=== PATIENT | male | born 1955 | race Caucasian/White ===

== ENCOUNTER 2018-04-30 13:21 | Inpatient (IN) | payer OTHER ==
[2018-04-30] MEDS ORDERED: Acetaminophen 325 MG Tab PO PRN (13:28)
[2018-04-30] MEDS: Sodium Chloride 0.9% 1,000 ML IV SCH (14:10)
[2018-04-30] MEDS: Levofloxacin/Dextrose 5%-Water 750 MG in Premix Bag 1 BAG IV SCH (15:00)
[2018-04-30] MEDS: Albuterol/Ipratropium 3.0-0.5 MG/3 ML Neb Soln NEB SCH ×2 (15:05→20:41)
--- NOTE | 2018-04-30 16:03 | PCM.HP ---
H&P History of Present Illness - General Date of Service: 04/30/18 Admit Problem/Dx: Admission Diagnosis/Problem Admission Diagnosis/Problem Pneumonia Source of Information: Patient History Limitations: Reports: No Limitations - History of Present Illness Initial Comments - Free Text/Narative: Ginny 8-year-old smoker who presents with cough and fever. Of 2-3 days. Was seen at [facility] and diagnosed with the left lower lobe pneumonia. He is admitted for IV antibiotics. 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 He denies any chest pain headaches nausea or vomiting denies Pain Score (Numeric/FACES): 0 asleep Pain Score (Numeric/FACES): 0 - Related Data Allergies/Adverse Reactions: Allergies Allergy/AdvReac Type Severity Reaction Status Date / Time No Known Allergies Allergy Verified 04/30/18 15:42 Home Medications: Home Meds Albuterol/Ipratropium [Combivent] 1 puff PO QID 05/11/16 [History] Warfarin [Coumadin] 5 mg PO SUTUWETHFRSA 05/11/16 [History] Warfarin [Coumadin] 7.5 mg PO MO 05/11/16 [History] Fluticasone/Salmeterol [Advair 250-50 Diskus] 1 each IH BID 05/15/16 [History] Past Medical History Cardiovascular History: Reports: Angina, Blood Clots/VTE/DVT Respiratory History: Reports: COPD Musculoskeletal History: Reports: Other (See Below) Other Musculoskeletal History: fx left ankle and laceration to right leg in past 20 years - Past Surgical History GI Surgical History: Reports: Hernia, Inguinal Social & Family History - Family History Family Medical History: Noncontributory Cardiac: Reports: [place] Respiratory: Reports: PE, Other (See Below) Other Respiratory Family Hisory: emph Oncologic: Reports: Other (See Below) Other Oncologic Family History: older sister passed from [place] unsure of type - Tobacco Use Smoking Status *Q: Current Every Day Smoker Years of Tobacco use: 42 Packs/Tins Daily: 1 Second Hand Smoke Exposure: Yes - Caffeine Use Caffeine Use: Reports: Coffee - Alcohol Use Days Per Week of Alcohol Use: 3 Number of Drinks Per Day: 3 Total Drinks Per Week: 9 Date of Last Drink: 04/29/18 Time of Last Drink: 20:00 - Recreational Drug Use Recreational Drug Use: No H&P Review of Systems - Review of Systems: Review Of Systems: ROS reveals no pertinent complaints other than HPI. Exam - Exam Exam: See Below - Vital Signs Vital Signs: Last Vital Signs Temp 98.3 F 04/30/18 14:00 Pulse 96 04/30/18 15:27 Resp 18 04/30/18 14:00 BP 118/72 04/30/18 14:00 Pulse Ox 87 L 04/30/18 15:27 Weight: 80.83 kg - Exam Quality Assessment: Supplemental Oxygen General: Alert, Oriented HEENT: PERRLA, Hearing Intact, Mucosa Moist & [place], Nares Patent, Normal Nasal Septum, Posterior Pharynx Clear, Conjunctiva Clear, EOMI, EACs Clear, TMs Clear Neck: Supple, Trachea Midline, 2 Lungs: Crackles, Rales Cardiovascular: Regular Rate GI/Abdominal Exam: Normal Bowel Sounds, Soft, Non-Tender, No Organomegaly, No Distention, No Abnormal Bruit, No Mass, Pelvis Stable (Male) Exam: Deferred Rectal (Males) Exam: Deferred Back Exam: Normal Inspection, Full Range of Motion, NT Extremities: Normal Inspection, Normal Range of Motion, Non-Tender, No Pedal Edema, Normal Capillary Refill Skin: Warm, Dry, Intact Neurological: Cranial Nerves Intact, Reflexes Equal Bilateral Neuro Extensive - Mental Status: Alert, Oriented x3, Normal Mood/Affect, Normal Cognition Neuro Extensive - Motor, Sensory, Reflexes: CN II-XII Intact, Normal Gait, Normal Reflexes Psychiatric: Alert, Normal Affect, Normal Mood - Patient Data Lab Results Last 24 hrs: Laboratory Results - last 24 hr 04/30/18 04/30/18 Range/Units 13:42 13:42 Sodium 132 L (135-145) mmol/L Potassium 4.0 (3.5-5.3) mmol/L Chloride 95 L (100-110) mmol/L Carbon Dioxide 28 (21-32) mmol/L BUN 24 H (7-18) mg/dL Creatinine 1.6 H (0.70-1.30) mg/dL Est Cr Clr Drug Dosing TNP Estimated GFR (MDRD) 44 L (>60) BUN/Creatinine Ratio 15.0 (9-20) Glucose 117 H (80-116) mg/dL Calcium 8.5 L (8.6-10.2) mg/dL Total Bilirubin 1.2 (0.1-1.3) mg/dL AST 17 (5-25) IU/L ALT 15 (12-36) U/L Alkaline Phosphatase 76 (56-112) IU/L Troponin I < 0.017 L (<0.017-0.056) ng/mL Total Protein 7.2 (6.0-8.0) g/dL Albumin 2.8 L (3.2-4.6) g/dL Globulin 4.4 g/dL Albumin/Globulin Ratio 0.6 Result Diagrams: 05/01/18 06:45 05/01/18 06:45 Richard Results Last 24 hrs: Microbiology 04/30/18 15:00 Influenza Type A Antigen Screen - Final Nasal, Unspecified NEGATIVE INFLUENZA A VIRUS AG Influenza Type B Antigen Screen - Final NEGATIVE INFLUENZA B VIRUS AG EKG INTERPRETATION EKG Date: 04/30/18 Rhythm: NSR - Problem List (1) Pneumonia SNOMED Code(s): 279785346 ICD Code: J18.9 - PNEUMONIA, UNSPECIFIED ORGANISM Status: Acute Current Visit: Yes Qualifiers: Aspiration pneumonia type: unspecified (2) H/O deep venous thrombosis SNOMED Code(s): 643694200 ICD Code: Z86.718 - PERSONAL HISTORY OF OTHER VENOUS THROMBOSIS AND EMBOLISM Status: Acute Current Visit: Yes (3) COPD (chronic obstructive pulmonary disease) SNOMED Code(s): 29091133 ICD Code: J44.9 - CHRONIC OBSTRUCTIVE PULMONARY DISEASE, UNSPECIFIED Status : Acute Current Visit: No Qualifiers: COPD type: COPD with acute exacerbation Qualified Code(s): J44.1 - Chronic obstructive pulmonary disease with (acute) exacerbation (4) Tobacco abuse SNOMED Code(s): 864845880 ICD Code: Z72.0 - TOBACCO USE Status: Acute Current Visit: No Problem List Initiated/Reviewed/Updated: Yes Orders Last 24hrs: Active Orders 24 hr Category Date Time Status Patient Status [ADT] Routine ADT 04/30/18 13:28 Active Height and Weight [RC] DAILY Care 04/30/18 13:28 Active IS (RT) [RT Incentive Spirometry] [RC] ASDIRECTED Care 04/30/18 15:15 Active Intake and Output [RC] QSHIFT Care 04/30/18 13:29 Active Oxygen Therapy [RC] PRN Care 04/30/18 13:28 Active RT Aerosol Therapy [RC] ASDIRECTED Care 04/30/18 13:31 Active VTE/DVT Education [RC] Per Unit Routine Care 04/30/18 13:28 Active Vital Signs [RC] Q4H Care 04/30/18 13:28 Active Regular Diet [DIET] Diet 04/30/18 Breakfast Active CBC W/O DIFF,HEMOGRAM [HEME] AM Lab 05/01/18 05:11 Ordered CULTURE BLOOD [BC] Urgent Lab 04/30/18 13:42 Received CULTURE BLOOD [BC] Urgent Lab 04/30/18 13:47 Received CULTURE SPUTUM + SMEAR [RM] Stat Lab 04/30/18 13:28 Ordered Acetaminophen [Tylenol] Med 04/30/18 13:28 Active 650 mg PO Q4H PRN Albuterol/Ipratropium [DuoNeb 3.0-0.5 MG/3 ML] Med 04/30/18 16:00 Active 3 ml NEB QIDRT Levofloxacin/Dextrose 5%-Water [Levaquin in D5W 750 MG/ Med 04/30/18 13:30 Active 150 ML] 750 mg Premix Bag 1 bag IV Q24H Sodium Chloride 0.9% [Normal Saline] 1,000 ml Med 04/30/18 13:30 Active IV ASDIRECTED Sodium Chloride 0.9% [Saline Flush] Med 04/30/18 13:28 Active 10 ml FLUSH ASDIRECTED PRN Blood Culture x2 Reflex Set [OM.PC] Urgent Oth 04/30/18 13:27 Ordered Peripheral IV Insertion Adult [OM.PC] Routine Oth 04/30/18 13:28 Ordered Resuscitation Status Routine Resus Stat 04/30/18 13:28 Ordered EKG 12 Lead [EK] Routine Ther 04/30/18 13:28 Ordered Medication Orders Acetaminophen (Tylenol) 650 mg PO Q4H PRN PRN Reason: Pain (Mild 1-3)/fever Albuterol/Ipratropium (Duoneb 3.0-0.5 Mg/3 Ml) 3 ml NEB QIDRT [facility] Last Admin: 04/30/18 15:05 Dose: 3 ml Levofloxacin/Dextrose 750 mg/ (Premix) 150 mls @ 100 mls/hr IV Q24H [facility] Last Admin: 04/30/18 15:00 Dose: 100 mls/hr Sodium Chloride (Normal Saline) 1,000 mls @ 125 mls/hr IV ASDIRECTED [facility]ID Last Admin: 04/30/18 14:10 Dose: 125 mls/hr Sodium Chloride (Saline Flush) 10 ml FLUSH ASDIRECTED PRN PRN Reason: Keep Vein Open Assessment/Plan Comment:: IVF,IV antibiotics,SVN's ,Solumedrol
[2018-04-30] MEDS: methylPREDNISolone Sodium Succinate 125 MG/2 ML SDV IVPUSH SCH (17:19)
[2018-04-30] MEDS: Formoterol/Mometasone 200-5 MCG 8.8 GM Inhaler IH SCH (20:44)
[2018-05-01] MEDS: methylPREDNISolone Sodium Succinate 125 MG/2 ML SDV IVPUSH SCH ×3 (01:19→17:10)
[2018-05-01] MEDS: Sodium Chloride 0.9% 1,000 ML IV SCH (02:11)
[2018-05-01] MEDS: Albuterol/Ipratropium 3.0-0.5 MG/3 ML Neb Soln NEB SCH ×4 (07:12→20:27)
[2018-05-01] MEDS: Formoterol/Mometasone 200-5 MCG 8.8 GM Inhaler IH SCH ×2 (08:40→20:40)
[2018-05-01] MEDS ORDERED: Iopamidol 755 Mg/ML 100 ML Bottle IV ONE (09:02)
--- NOTE | 2018-05-01 09:28 | PCM.PN ---
- General Info Date of Service: 05/01/18 Subjective Update: Erwin slept well, has no complaints. However the nursing staff noted that his oxygenation needs increased.No fever reported. - Review of Systems HEENT: Reports: No Symptoms Pulmonary: Reports: Cough Cardiovascular: Reports: No Symptoms Gastrointestinal: Reports: No Symptoms - Patient Data Vitals - Most Recent: Last Vital Signs Temp 97.6 F 05/01/18 08:00 Pulse 70 05/01/18 08:00 Resp 14 05/01/18 08:00 BP 105/68 05/01/18 08:00 Pulse Ox 88 L 05/01/18 08:00 Weight - Most Recent: 80.83 kg I&O - Last 24 Hours: Intake & Output 04/30/18 05/01/18 05/01/18 22:59 06:59 14:59 Intake Total 200 Balance 200 Lab Results Last 24 Hours: Laboratory Results - last 24 hr 04/30/18 04/30/18 05/01/18 Range/Units 13:42 13:42 06:45 WBC 8.0 (4.5-12.0) X10-3/uL RBC 4.41 (4.30-5.75) x10(6)uL Hgb 13.7 (11.5-15.5) g/dL Hct 41.3 (30.0-51.3) % MCV 93.7 (80-96) fL MCH 31.2 (27.7-33.6) pg MCHC 33.3 (32.2-35.4) g/dL RDW 13.4 (11.5-15.5) % Plt Count 118 L (125-369) X10(3)uL PT (8.7-11.1) INR (0.89-1.13) Sodium 132 L (135-145) mmol/L Potassium 4.0 (3.5-5.3) mmol/L Chloride 95 L (100-110) mmol/L Carbon Dioxide 28 (21-32) mmol/L BUN 24 H (7-18) mg/dL Creatinine 1.6 H (0.70-1.30) mg/dL Est Cr Clr Drug Dosing TNP Estimated GFR (MDRD) 44 L (>60) BUN/Creatinine Ratio 15.0 (9-20) Glucose 117 H (80-116) mg/dL Calcium 8.5 L (8.6-10.2) mg/dL Total Bilirubin 1.2 (0.1-1.3) mg/dL AST 17 (5-25) IU/L ALT 15 (12-36) U/L Alkaline Phosphatase 76 (56-112) IU/L Troponin I < 0.017 L (<0.017-0.056) ng/mL Total Protein 7.2 (6.0-8.0) g/dL Albumin 2.8 L (3.2-4.6) g/dL Globulin 4.4 g/dL Albumin/Globulin Ratio 0.6 05/01/18 05/01/18 Range/Units 06:45 06:45 WBC (4.5-12.0) X10-3/uL RBC (4.30-5.75) x10(6)uL Hgb (11.5-15.5) g/dL Hct (30.0-51.3) % MCV (80-96) fL MCH (27.7-33.6) pg MCHC (32.2-35.4) g/dL RDW (11.5-15.5) % Plt Count (125-369) X10(3)uL PT 34.5 H (8.7-11.1) INR 3.61 H (0.89-1.13) Sodium 137 (135-145) mmol/L Potassium 4.5 (3.5-5.3) mmol/L Chloride 100 D (100-110) mmol/L Carbon Dioxide 31 (21-32) mmol/L BUN 19 H (7-18) mg/dL Creatinine 1.1 (0.70-1.30) mg/dL Est Cr Clr Drug Dosing 76.06 Estimated GFR (MDRD) > 60 (>60) BUN/Creatinine Ratio 17.3 (9-20) Glucose 152 H (80-116) mg/dL Calcium 8.8 (8.6-10.2) mg/dL Total Bilirubin (0.1-1.3) mg/dL AST (5-25) IU/L ALT (12-36) U/L Alkaline Phosphatase (56-112) IU/L Troponin I (<0.017-0.056) ng/mL Total Protein (6.0-8.0) g/dL Albumin (3.2-4.6) g/dL Globulin g/dL Albumin/Globulin Ratio Richard Results Last 24 Hours: Microbiology 04/30/18 15:00 Influenza Type A Antigen Screen - Final Nasal, Unspecified NEGATIVE INFLUENZA A VIRUS AG Influenza Type B Antigen Screen - Final NEGATIVE INFLUENZA B VIRUS AG Med Orders - Current: Current Medications Acetaminophen (Tylenol) 650 mg PO Q4H PRN PRN Reason: Pain (Mild 1-3)/fever Albuterol/Ipratropium (Duoneb 3.0-0.5 Mg/3 Ml) 3 ml NEB QIDRT [facility] Last Admin: 05/01/18 07:12 Dose: 3 ml Levofloxacin/Dextrose 750 mg/ (Premix) 150 mls @ 100 mls/hr IV Q24H [facility] Last Admin: 04/30/18 15:00 Dose: 100 mls/hr Methylprednisolone Sodium Succinate (Solu-Medrol) 125 mg IVPUSH Q8H [facility] Last Admin: 05/01/18 08:15 Dose: 125 mg Mometasone Furoate/Formoterol Fumar (Dulera 200-5 Mcg) 2 puff IH BID [facility] Last Admin: 05/01/18 08:40 Dose: 2 puff Sodium Chloride (Saline Flush) 10 ml FLUSH ASDIRECTED PRN PRN Reason: Keep Vein Open Discontinued Medications Sodium Chloride (Normal Saline) 1,000 mls @ 125 mls/hr IV ASDIRECTED [facility] Last Admin: 05/01/18 02:11 Dose: 125 mls/hr Iopamidol (Isovue-370 (76%)) 100 ml IV . DIRECTED ONE Stop: 05/01/18 09:03 - Exam Quality Assessment: Supplemental Oxygen General: Alert, Other Lungs: Crackles, Rales Cardiovascular: Regular Rate - Problem List & Annotations (1) Pneumonia SNOMED Code(s): 675206375 Code(s): J18.9 - PNEUMONIA, UNSPECIFIED ORGANISM Status: Acute Current Visit: Yes Qualifiers: Aspiration pneumonia type: unspecified (2) H/O deep venous thrombosis SNOMED Code(s): 853113763 Code(s): Z86.718 - PERSONAL HISTORY OF OTHER VENOUS THROMBOSIS AND EMBOLISM Status: Acute Current Visit: Yes (3) COPD (chronic obstructive pulmonary disease) SNOMED Code(s): 83773427 Code(s): J44.9 - CHRONIC OBSTRUCTIVE PULMONARY DISEASE, UNSPECIFIED Status : Acute Current Visit: No Qualifiers: COPD type: COPD with acute exacerbation Qualified Code(s): J44.1 - Chronic obstructive pulmonary disease with (acute) exacerbation (4) Tobacco abuse SNOMED Code(s): 944600358 Code(s): Z72.0 - TOBACCO USE Status: Acute Current Visit: No - Problem List Review Problem List Initiated/Reviewed/Updated: Yes - My Orders Last 24 Hours: My Active Orders 04/30/18 13:27 Blood Culture x2 Reflex Set [OM.PC] Urgent 04/30/18 13:28 Patient Status [ADT] Routine Height and Weight [RC] 06 Oxygen Therapy [RC] PRN VTE/DVT Education [RC] Per Unit Routine Vital Signs [RC] 20,00,04,08 CULTURE SPUTUM + SMEAR [RM] Stat Acetaminophen [Tylenol] 650 mg PO Q4H PRN Sodium Chloride 0.9% [Saline Flush] 10 ml FLUSH ASDIRECTED PRN Peripheral IV Insertion Adult [OM.PC] Routine Resuscitation Status Routine EKG 12 Lead [EK] Routine 04/30/18 13:29 Intake and Output [RC] QSHIFT 04/30/18 13:30 Levofloxacin/Dextrose 5%-Water [Levaquin in D5W 750 MG/150 ML] 750 mg Premix Bag 1 bag IV Q24H 04/30/18 13:31 RT Aerosol Therapy [RC] ASDIRECTED 04/30/18 13:42 CULTURE BLOOD [BC] Urgent 04/30/18 13:47 CULTURE BLOOD [BC] Urgent 04/30/18 15:15 IS (RT) [RT Incentive Spirometry] [RC] ASDIRECTED 04/30/18 16:00 Albuterol/Ipratropium [DuoNeb 3.0-0.5 MG/3 ML] 3 ml NEB QIDRT 04/30/18 16:30 methylPREDNISolone Sod Succ [Solu-MEDROL] 125 mg IVPUSH Q8H 04/30/18 21:00 Mometasone/Formoterol [Dulera 200-5 MCG] 2 puff IH BID 05/01/18 08:44 Chest w Cont [CT] Routine 05/01/18 08:45 RT Incentive Spirometry [RC] Q4HWA 05/02/18 05:11 BASIC METABOLIC PANEL,BMP [CHEM] AM CBC WITH AUTO DIFF [HEME] AM 05/02/18 06:00 INR,PT,PROTHROMBIN TIME [COAG] DAILY 05/03/18 06:00 INR,PT,PROTHROMBIN TIME [COAG] DAILY - Plan Plan:: heplock IVF,but IV antibiotics,SVN's ,Solumedrol.Obtain CT chest w/contrast
[2018-05-01] MEDS ORDERED: Warfarin Sliding Scale PO SCH (09:45)
[2018-05-01] MEDS: Iopamidol 755 Mg/ML 75 ML Bottle IV ONE ×2 (12:05→12:16)
[2018-05-01] MEDS: Levofloxacin/Dextrose 5%-Water 750 MG in Premix Bag 1 BAG IV SCH (14:01)
[2018-05-01] MEDS: Sodium Chloride 0.9% 10 ML Syringe FLUSH PRN ×3 (14:02→17:10)
--- NOTE | 2018-05-01 14:05 | CT ---
INDICATION: Hypoxia. Smoker for 42 years one pack a day. CT CHEST WITH CONTRAST: Spiral 2.5 mm images were obtained through the chest with (75 mm Isovue 370 at 3 mm per second) with sagittal and coronal reconstructions 05/01/18--no comparisons were available except for a chest x- ray from 05/11/16. Total exam DPL =369.31 mGy-cm. There is infiltration which is patchy and scattered in the right upper lobe which extends throughout the right upper lobe with numerous focal areas of moderately consolidating infiltration including one area which is somewhat suspicious for other than benign disease just above the middle lobe laterally. There also is patchy infiltrate in the right lower lobe with areas of dense consolidation that is more severe than the more cranial infiltrates. More dense patchy consolidating infiltrate is seen in the middle and very dense consolidating pneumonia is also seen in the left lower lobe and to a slightly lesser extent in the lingula. Relative minimal patchy infiltrate is seen scattered about the left upper lobe. The heart did not appear enlarged. No pericardial effusion was seen. Minimal aortic and brachial cephalic vessel calcification is noted. Mediastinal lymphadenopathy is noted which may be reactive to infection but should be correlated clinically. The largest node precarinal in location measured approximately 18 mm. No mediastinal mass was seen. The upper abdomen included on the examination showed no gross abnormalities. IMPRESSION: 1. Scattered areas of infiltration in all lobes of the lung, most severe in the lower lobes and middle lobe. These findings are compatible with pneumonia possibly hematogenous in origin. The possibility of aspiration pneumonia is felt to be less likely. The findings should be correlated clinically, however. Mediastinal lymphadenopathy is likely secondary. Report was called to Dr. Eisenberg at 1539 hours. [facility]
[2018-05-02] MEDS: methylPREDNISolone Sodium Succinate 125 MG/2 ML SDV IVPUSH SCH ×2 (00:07→09:10)
[2018-05-02] MEDS: Sodium Chloride 0.9% 10 ML Syringe FLUSH PRN ×3 (00:10→17:07)
[2018-05-02] MEDS: Albuterol/Ipratropium 3.0-0.5 MG/3 ML Neb Soln NEB SCH ×4 (07:33→19:59)
--- NOTE | 2018-05-02 10:32 | PCM.PN ---
- General Info Date of Service: 05/02/18 Admission Dx/Problem (Free Text): Patient states he has very little cough. His breathing is better and is less short of breath. He denies chest pain, fevers, chills. He does have some sweats. He is a smoker and says he is tolerating not using the patch and does not want to use it at this time. - Patient Data Vitals - Most Recent: Last Vital Signs Temp 97.7 F 05/02/18 00:05 Pulse 76 05/02/18 07:34 Resp 16 05/02/18 00:05 BP 129/77 05/02/18 00:05 Pulse Ox 92 L 05/02/18 00:05 Weight - Most Recent: 180 lb 11.2 oz I&O - Last 24 Hours: Intake & Output 05/01/18 05/02/18 05/02/18 22:59 06:59 14:59 Intake Total 388 600 Balance 388 600 Lab Results Last 24 Hours: Laboratory Results - last 24 hr 05/02/18 05/02/18 05/02/18 Range/Units 06:35 06:35 06:35 WBC 9.6 (4.5-12.0) X10-3/uL RBC 4.06 L (4.30-5.75) x10(6)uL Hgb 13.0 (11.5-15.5) g/dL Hct 38.0 (30.0-51.3) % MCV 93.7 (80-96) fL MCH 32.1 (27.7-33.6) pg MCHC 34.3 (32.2-35.4) g/dL RDW 13.2 (11.5-15.5) % Plt Count 138 (125-369) X10(3)uL MPV 9.9 (7.4-10.4) fL Add Manual Diff Yes Neutrophils % (Manual) 92 H (46-82) % Lymphocytes % (Manual) 5 L (13-37) % Monocytes % (Manual) 3 L (4-12) % PT 20.5 H (8.7-11.1) INR 2.13 H (0.89-1.13) Sodium 135 (135-145) mmol/L Potassium 3.9 (3.5-5.3) mmol/L Chloride 100 (100-110) mmol/L Carbon Dioxide 28 (21-32) mmol/L BUN 17 (7-18) mg/dL Creatinine 0.9 (0.70-1.30) mg/dL Est Cr Clr Drug Dosing 92.96 mL/min Estimated GFR (MDRD) > 60 (>60) BUN/Creatinine Ratio 18.9 (9-20) Glucose 157 H (80-116) mg/dL Calcium 8.7 (8.6-10.2) mg/dL Richard Results Last 24 Hours: Microbiology 05/01/18 13:02 Gram Stain - Final Sputum - Expectorated 04/30/18 13:42 Aerobic Blood Culture - Preliminary Blood - Venous NO GROWTH AFTER 1 DAY Anaerobic Blood Culture - Preliminary NO GROWTH AFTER 1 DAY 04/30/18 13:47 Aerobic Blood Culture - Preliminary Blood - Venous - Lab Draw NO GROWTH AFTER 1 DAY Anaerobic Blood Culture - Preliminary NO GROWTH AFTER 1 DAY Med Orders - Current: Current Medications Acetaminophen (Tylenol) 650 mg PO Q4H PRN PRN Reason: Pain (Mild 1-3)/fever Albuterol/Ipratropium (Duoneb 3.0-0.5 Mg/3 Ml) 3 ml NEB QIDRT [facility] Last Admin: 05/02/18 07:33 Dose: 3 ml Levofloxacin/Dextrose 750 mg/ (Premix) 150 mls @ 100 mls/hr IV Q24H [facility] Last Admin: 05/01/18 14:01 Dose: 100 mls/hr Mometasone Furoate/Formoterol Fumar (Dulera 200-5 Mcg) 2 puff IH BID [facility] Last Admin: 05/01/18 20:40 Dose: 2 puff Sodium Chloride (Saline Flush) 10 ml FLUSH ASDIRECTED PRN PRN Reason: Keep Vein Open Last Admin: 05/02/18 09:13 Dose: 10 ml Warfarin Sodium (Coumadin Sliding Scale) 1 each PO ASDIRECTED [facility] Warfarin Sodium (Coumadin) 2.5 mg PO 1600 [facility] Stop: 05/02/18 16:01 Discontinued Medications Sodium Chloride (Normal Saline) 1,000 mls @ 125 mls/hr IV ASDIRECTED [facility] Last Admin: 05/01/18 02:11 Dose: 125 mls/hr Iopamidol (Isovue-370 (76%)) 100 ml IV . DIRECTED ONE Stop: 05/01/18 09:03 Iopamidol (Isovue-370 (76%)) 75 ml IV ASDIRECTED ONE Stop: 05/01/18 11:58 Last Admin: 05/01/18 12:16 Dose: 75 ml Methylprednisolone Sodium Succinate (Solu-Medrol) 125 mg IVPUSH Q8H [facility] Last Admin: 05/02/18 09:10 Dose: 125 mg - Exam General: Alert, Oriented, Cooperative Neck: Supple Lungs: Decreased Breath Sounds. No: Crackles, Rales, Rhonchi Cardiovascular: Regular Rate, Regular Rhythm, No Murmurs Extremities: No Pedal Edema - Problem List & Annotations (1) Palliative care status SNOMED Code(s): 602555452 Code(s): Z51.5 - ENCOUNTER FOR PALLIATIVE CARE Status: Acute Current Visit: Yes (2) H/O deep venous thrombosis SNOMED Code(s): 540213626 Code(s): Z86.718 - PERSONAL HISTORY OF OTHER VENOUS THROMBOSIS AND EMBOLISM Status: Acute Current Visit: Yes (3) Pneumonia SNOMED Code(s): 888581376 Code(s): J18.9 - PNEUMONIA, UNSPECIFIED ORGANISM Status: Acute Current Visit: Yes Qualifiers: Aspiration pneumonia type: unspecified (4) COPD (chronic obstructive pulmonary disease) SNOMED Code(s): 39806397 Code(s): J44.9 - CHRONIC OBSTRUCTIVE PULMONARY DISEASE, UNSPECIFIED Status : Acute Current Visit: No Qualifiers: COPD type: COPD with acute exacerbation Qualified Code(s): J44.1 - Chronic obstructive pulmonary disease with (acute) exacerbation (5) Tobacco abuse SNOMED Code(s): 872805975 Code(s): Z72.0 - TOBACCO USE Status: Acute Current Visit: No - Problem List Review Problem List Initiated/Reviewed/Updated: Yes - My Orders Last 24 Hours: My Active Orders 05/02/18 10:30 Triamcinolone Acetonide [Nasacort AQ [place]] 1 gm LETICIA DAILY 05/03/18 09:00 predniSONE 60 mg PO DAILY - Plan Plan:: 1. DC Solu-Medrol and start prednisone 60 mg by mouth a day. 2. I went over his CT scan with the patient today. 3. Continue Coumadin and have pharmacy to manage. 4. Nasacort AQ 2 sprays each nostril once a day. 5. Ambulate frequently and up in the chair.
[2018-05-02] MEDS: Formoterol/Mometasone 200-5 MCG 8.8 GM Inhaler IH SCH ×2 (11:11→19:59)
[2018-05-02] MEDS: Fluticasone Propionate Nasal Spray 16 GM Bottle NAS SCH (13:29)
[2018-05-02] MEDS: Levofloxacin/Dextrose 5%-Water 750 MG in Premix Bag 1 BAG IV SCH (13:29)
[2018-05-02] MEDS ORDERED: Warfarin 2.5 MG Tab PO SCH (16:00)
[2018-05-03] MEDS: Albuterol/Ipratropium 3.0-0.5 MG/3 ML Neb Soln NEB SCH ×4 (07:14→20:23)
--- NOTE | 2018-05-03 08:30 | PCM.PN ---
- General Info Date of Service: 05/03/18 Admission Dx/Problem (Free Text): Patient states that his diaphoresis is gone. He has occasional cough. Not too much shortness of breath with the oxygen. Overall he is much improved. He denies fevers, chills, chest pain or back pain. - Patient Data Vitals - Most Recent: Last Vital Signs Temp 97.6 F 05/03/18 06:15 Pulse 74 05/03/18 07:17 Resp 20 05/03/18 06:15 BP 116/74 05/03/18 06:15 Pulse Ox 94 L 05/03/18 07:14 Weight - Most Recent: 186 lb I&O - Last 24 Hours: Intake & Output 05/02/18 05/03/18 05/03/18 22:59 06:59 14:59 Intake Total 200 Balance 200 Lab Results Last 24 Hours: Laboratory Results - last 24 hr 05/03/18 Range/Units 06:20 PT 19.2 H (8.7-11.1) INR 1.99 H (0.89-1.13) Richard Results Last 24 Hours: Microbiology 05/01/18 13:02 Gram Stain - Final Sputum - Expectorated Sputum Culture - Preliminary Gram Negative Rods Gram Positive Cocci 04/30/18 13:42 Aerobic Blood Culture - Preliminary Blood - Venous NO GROWTH AFTER 2 DAYS Anaerobic Blood Culture - Preliminary NO GROWTH AFTER 2 DAYS 04/30/18 13:47 Aerobic Blood Culture - Preliminary Blood - Venous - Lab Draw NO GROWTH AFTER 2 DAYS Anaerobic Blood Culture - Preliminary NO GROWTH AFTER 2 DAYS Med Orders - Current: Current Medications Acetaminophen (Tylenol) 650 mg PO Q4H PRN PRN Reason: Pain (Mild 1-3)/fever Albuterol/Ipratropium (Duoneb 3.0-0.5 Mg/3 Ml) 3 ml NEB QIDRT [facility] Last Admin: 05/03/18 07:14 Dose: 3 ml Fluticasone Propionate (Flonase) 0 gm LEITCIA DAILY [facility] Last Admin: 05/02/18 13:29 Dose: 2 spray Levofloxacin/Dextrose 750 mg/ (Premix) 150 mls @ 100 mls/hr IV Q24H [facility] Last Admin: 05/02/18 13:29 Dose: 100 mls/hr Mometasone Furoate/Formoterol Fumar (Dulera 200-5 Mcg) 2 puff IH BID [facility] Last Admin: 05/02/18 19:59 Dose: 2 puff Prednisone (Prednisone) 60 mg PO DAILY [facility] Sodium Chloride (Saline Flush) 10 ml FLUSH ASDIRECTED PRN PRN Reason: Keep Vein Open Last Admin: 05/02/18 17:07 Dose: 10 ml Warfarin Sodium (Coumadin Sliding Scale) 1 each PO ASDIRECTED [facility] Warfarin Sodium (Coumadin) 5 mg PO 1600 [facility] Stop: 05/04/18 16:01 Discontinued Medications Sodium Chloride (Normal Saline) 1,000 mls @ 125 mls/hr IV ASDIRECTED [facility] Last Admin: 05/01/18 02:11 Dose: 125 mls/hr Iopamidol (Isovue-370 (76%)) 100 ml IV . DIRECTED ONE Stop: 05/01/18 09:03 Iopamidol (Isovue-370 (76%)) 75 ml IV ASDIRECTED ONE Stop: 05/01/18 11:58 Last Admin: 05/01/18 12:16 Dose: 75 ml Methylprednisolone Sodium Succinate (Solu-Medrol) 125 mg IVPUSH Q8H [facility] Last Admin: 05/02/18 09:10 Dose: 125 mg Warfarin Sodium (Coumadin) 2.5 mg PO 1600 [facility] Stop: 05/02/18 16:01 Last Admin: 05/02/18 17:07 Dose: 2.5 mg - Exam General: Alert, Oriented Lungs: Normal Respiratory Effort, Decreased Breath Sounds. No: Crackles, Rales , Rhonchi Cardiovascular: Regular Rate, Regular Rhythm, No Murmurs Extremities: No Pedal Edema - Problem List & Annotations (1) Palliative care status SNOMED Code(s): 548460258 Code(s): Z51.5 - ENCOUNTER FOR PALLIATIVE CARE Status: Acute Current Visit: Yes (2) H/O deep venous thrombosis SNOMED Code(s): 867570805 Code(s): Z86.718 - PERSONAL HISTORY OF OTHER VENOUS THROMBOSIS AND EMBOLISM Status: Acute Current Visit: Yes (3) Pneumonia SNOMED Code(s): 487686399 Code(s): J18.9 - PNEUMONIA, UNSPECIFIED ORGANISM Status: Acute Current Visit: Yes Qualifiers: Aspiration pneumonia type: unspecified (4) COPD (chronic obstructive pulmonary disease) SNOMED Code(s): 24705945 Code(s): J44.9 - CHRONIC OBSTRUCTIVE PULMONARY DISEASE, UNSPECIFIED Status : Acute Current Visit: No Qualifiers: COPD type: COPD with acute exacerbation Qualified Code(s): J44.1 - Chronic obstructive pulmonary disease with (acute) exacerbation (5) Tobacco abuse SNOMED Code(s): 935934638 Code(s): Z72.0 - TOBACCO USE Status: Acute Current Visit: No (6) Hypoxia SNOMED Code(s): 417100767 Code(s): R09.02 - HYPOXEMIA Status: Acute Current Visit: Yes - Problem List Review Problem List Initiated/Reviewed/Updated: Yes - My Orders Last 24 Hours: My Active Orders 05/02/18 10:30 Fluticasone Propionate [Flonase] 0 gm LETICIA DAILY 05/03/18 09:00 predniSONE 60 mg PO DAILY 05/05/18 07:52 INR,PT,PROTHROMBIN TIME [COAG] Routine - Plan Plan:: 1. He's going out gram-negative gram positives in his sputum. ID will be done later today. 2. Evaluate for home O2 today. 3. Continue prednisone and Levaquin and nebulizers. 4. Ambulate frequently and up in the chair.
[2018-05-03] MEDS: Formoterol/Mometasone 200-5 MCG 8.8 GM Inhaler IH SCH ×2 (10:03→20:23)
[2018-05-03] MEDS: Fluticasone Propionate Nasal Spray 16 GM Bottle NAS SCH (10:04)
[2018-05-03] MEDS: predniSONE 20 MG Tab PO SCH (10:04)
[2018-05-03] MEDS: Levofloxacin/Dextrose 5%-Water 750 MG in Premix Bag 1 BAG IV SCH (14:06)
[2018-05-03] MEDS: Sodium Chloride 0.9% 10 ML Syringe FLUSH PRN (15:37)
[2018-05-03] MEDS ORDERED: Warfarin 5 MG Tab PO SCH (16:00)
[2018-05-04] MEDS: Albuterol/Ipratropium 3.0-0.5 MG/3 ML Neb Soln NEB SCH (07:28)
--- NOTE | 2018-05-04 07:34 | PCM.PN ---
- General Info Date of Service: 05/04/18 Admission Dx/Problem (Free Text): Patient states he is doing well. Still requiring oxygen. No cough, fevers. Minimal shortness of breath. - Patient Data Vitals - Most Recent: Last Vital Signs Temp 97.8 F 05/04/18 06:00 Pulse 78 05/04/18 07:28 Resp 20 05/04/18 06:00 BP 144/93 H 05/04/18 06:00 Pulse Ox 90 L 05/04/18 07:28 Weight - Most Recent: 188 lb Richard Results Last 24 Hours: Microbiology 05/01/18 13:02 Gram Stain - Final Sputum - Expectorated Sputum Culture - Preliminary Enterobacter Cloacae Gram Positive Cocci 04/30/18 13:42 Aerobic Blood Culture - Preliminary Blood - Venous NO GROWTH AFTER 3 DAYS Anaerobic Blood Culture - Preliminary NO GROWTH AFTER 3 DAYS 04/30/18 13:47 Aerobic Blood Culture - Preliminary Blood - Venous - Lab Draw NO GROWTH AFTER 3 DAYS Anaerobic Blood Culture - Preliminary NO GROWTH AFTER 3 DAYS Med Orders - Current: Current Medications Acetaminophen (Tylenol) 650 mg PO Q4H PRN PRN Reason: Pain (Mild 1-3)/fever Albuterol/Ipratropium (Duoneb 3.0-0.5 Mg/3 Ml) 3 ml NEB QIDRT [facility] Last Admin: 05/04/18 07:28 Dose: 3 ml Fluticasone Propionate (Flonase) 0 gm LETICIA DAILY [facility] Last Admin: 05/03/18 10:04 Dose: 2 spray Mometasone Furoate/Formoterol Fumar (Dulera 200-5 Mcg) 2 puff IH BID [facility] Last Admin: 05/03/18 20:23 Dose: 2 puff Prednisone (Prednisone) 60 mg PO DAILY [facility] Last Admin: 05/03/18 10:04 Dose: 60 mg Sodium Chloride (Saline Flush) 10 ml FLUSH ASDIRECTED PRN PRN Reason: Keep Vein Open Last Admin: 05/03/18 15:37 Dose: 10 ml Warfarin Sodium (Coumadin Sliding Scale) 1 each PO ASDIRECTED [facility] Warfarin Sodium (Coumadin) 5 mg PO 1600 [facility] Stop: 05/04/18 16:01 Last Admin: 05/03/18 16:11 Dose: 5 mg Discontinued Medications Levofloxacin/Dextrose 750 mg/ (Premix) 150 mls @ 100 mls/hr IV Q24H [facility] Last Admin: 05/03/18 14:06 Dose: 100 mls/hr Sodium Chloride (Normal Saline) 1,000 mls @ 125 mls/hr IV ASDIRECTED [facility] Last Admin: 05/01/18 02:11 Dose: 125 mls/hr Iopamidol (Isovue-370 (76%)) 100 ml IV . DIRECTED ONE Stop: 05/01/18 09:03 Iopamidol (Isovue-370 (76%)) 75 ml IV ASDIRECTED ONE Stop: 05/01/18 11:58 Last Admin: 05/01/18 12:16 Dose: 75 ml Methylprednisolone Sodium Succinate (Solu-Medrol) 125 mg IVPUSH Q8H [facility] Last Admin: 05/02/18 09:10 Dose: 125 mg Warfarin Sodium (Coumadin) 2.5 mg PO 1600 [facility] Stop: 05/02/18 16:01 Last Admin: 05/02/18 17:07 Dose: 2.5 mg - Exam General: Alert, Oriented, Cooperative Lungs: Normal Respiratory Effort, Decreased Breath Sounds. No: Rales, Rhonchi Cardiovascular: Regular Rate, Regular Rhythm, No Murmurs Extremities: No Pedal Edema - Problem List & Annotations (1) Palliative care status SNOMED Code(s): 623511354 Code(s): Z51.5 - ENCOUNTER FOR PALLIATIVE CARE Status: Acute Current Visit: Yes (2) H/O deep venous thrombosis SNOMED Code(s): 679033623 Code(s): Z86.718 - PERSONAL HISTORY OF OTHER VENOUS THROMBOSIS AND EMBOLISM Status: Acute Current Visit: Yes (3) Pneumonia SNOMED Code(s): 399874914 Code(s): J18.9 - PNEUMONIA, UNSPECIFIED ORGANISM Status: Acute Current Visit: Yes Qualifiers: Aspiration pneumonia type: unspecified (4) COPD (chronic obstructive pulmonary disease) SNOMED Code(s): 95886499 Code(s): J44.9 - CHRONIC OBSTRUCTIVE PULMONARY DISEASE, UNSPECIFIED Status : Acute Current Visit: No Qualifiers: COPD type: COPD with acute exacerbation Qualified Code(s): J44.1 - Chronic obstructive pulmonary disease with (acute) exacerbation (5) Tobacco abuse SNOMED Code(s): 050983285 Code(s): Z72.0 - TOBACCO USE Status: Acute Current Visit: No (6) Hypoxia SNOMED Code(s): 599148640 Code(s): R09.02 - HYPOXEMIA Status: Acute Current Visit: Yes - Problem List Review Problem List Initiated/Reviewed/Updated: Yes - My Orders Last 24 Hours: My Active Orders 05/03/18 09:00 predniSONE 60 mg PO DAILY 05/04/18 07:45 levoFLOXacin [Levaquin] 750 mg PO Q24H 05/05/18 07:52 INR,PT,PROTHROMBIN TIME [COAG] Routine - Plan Plan:: 1. Discharge to home on O2, Levaquin and prednisone. Patent to continues on inhalers. Smoking cessation discussed with the patient. Not interested at this time.
--- NOTE | 2018-05-04 07:49 | PCM.DCSUM1 ---
Discharge Summary - Hospital Course Free Text/Narrative:: Hospital course-patient was admitted for oxygen therapy and antibiotics. He was placed on 750 mg Levaquin day IV. The pharmacy manage his Coumadin level and he was able to maintain 5 mg even on Levaquin and he did not run too high. Patient proceeded to improve. He had very minimal cough and sweats that Better. His oxygen still required nasal cannula O2 at 2 L to keep him above 90%. He was using breathing treatments as per protocol and did well. His CAT scan showed diffuse infiltrates more prominent in the middle lobe and lower lobes bilateral. No PEs. Sodium was low, platelets are low, creatinine her low and corrected with IV fluids and with infection. He was given prednisone Solu- Medrol 125 mg IV 8 hours. So she'll do prednisone 60 mg on day 2. This is once a day. He'll go home with a taper. He was not able to get off oxygen while he was here so go home on oxygen nasal cannula managed by Jamal. I did discuss smoking cessation with the patient. He stated that into consideration. Brief History: 62 year-old male smoker who presents with cough and fever. Of 2- 3 days. Was seen at [facility] and diagnosed with the left lower lobe pneumonia. He is admitted for IV antibiotics. 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 He denies any chest pain headaches nausea or vomiting Diagnosis: Stroke: No - Discharge Data Discharge Date: 05/04/18 Discharge Disposition: Home, Self-Care 01 Condition: Good - Discharge Diagnosis/Problem(s) (1) Palliative care status SNOMED Code(s): 064332534 ICD Code: Z51.5 - ENCOUNTER FOR PALLIATIVE CARE Status: Acute Current Visit: Yes (2) H/O deep venous thrombosis SNOMED Code(s): 244856119 ICD Code: Z86.718 - PERSONAL HISTORY OF OTHER VENOUS THROMBOSIS AND EMBOLISM Status: Acute Current Visit: Yes (3) Pneumonia SNOMED Code(s): 546851176 ICD Code: J18.9 - PNEUMONIA, UNSPECIFIED ORGANISM Status: Acute Current Visit: Yes Qualifiers: Aspiration pneumonia type: unspecified (4) COPD (chronic obstructive pulmonary disease) SNOMED Code(s): 49219221 ICD Code: J44.9 - CHRONIC OBSTRUCTIVE PULMONARY DISEASE, UNSPECIFIED Status : Acute Current Visit: No Qualifiers: COPD type: COPD with acute exacerbation Qualified Code(s): J44.1 - Chronic obstructive pulmonary disease with (acute) exacerbation (5) Tobacco abuse SNOMED Code(s): 591837281 ICD Code: Z72.0 - TOBACCO USE Status: Acute Current Visit: No (6) Hypoxia SNOMED Code(s): 365369458 ICD Code: R09.02 - HYPOXEMIA Status: Acute Current Visit: Yes (7) Acute renal failure SNOMED Code(s): 07710919 ICD Code: N17.9 - ACUTE KIDNEY FAILURE, UNSPECIFIED Status: Acute Current Visit: Yes (8) Hyponatremia SNOMED Code(s): 43988044 ICD Code: E87.1 - HYPO-OSMOLALITY AND HYPONATREMIA Status: Acute Current Visit: Yes (9) Thrombocytopenia SNOMED Code(s): 929560371 ICD Code: D69.6 - THROMBOCYTOPENIA, UNSPECIFIED Status: Acute Current Visit: Yes - Patient Instructions Diet: Regular Diet as Tolerated Activity: As Tolerated Driving: May Drive Today Showering/Bathing: May Shower Notify Provider of: Fever, Increased Pain Other/Special Instructions: 1. Home O2 per [facility]-regarding hypoxia from COPD and pneumonia. 2. Recheck in 2 days at the Coumadin clinic for INR because he is on Levaquin. 3. Recheck with Dr. Pierson or Jarrod Kowalski in 5-7 days. - Discharge Plan Prescriptions/Med Rec: levoFLOXacin [Levaquin] 750 mg PO Q24H #5 tablet predniSONE [Prednisone] See Taper PO DAILY #42 tablet Home Medications: Home Meds Albuterol/Ipratropium [Combivent] 1 puff PO QID 05/11/16 [History] Warfarin [Coumadin] 5 mg PO SUTUWETHFRSA 05/11/16 [History] Warfarin [Coumadin] 7.5 mg PO MO 05/11/16 [History] Fluticasone/Salmeterol [Advair 250-50 Diskus] 1 each IH BID 05/15/16 [History] Aspirin 81 mg PO DAILY 05/01/18 [History] levoFLOXacin [Levaquin] 750 mg PO Q24H #5 tablet 05/04/18 [Rx] predniSONE [Prednisone] See Taper PO DAILY #42 tablet 05/04/18 [Rx] Patient Handouts: Venous Thromboembolism Prevention, Community-Acquired Pneumonia, Adult, [id number] - Discharge Summary/Plan Comment DC Time >30 min.: No - Patient Data Vitals - Most Recent: Last Vital Signs Temp 97.8 F 05/04/18 06:00 Pulse 78 05/04/18 07:28 Resp 20 05/04/18 06:00 BP 144/93 H 05/04/18 06:00 Pulse Ox 90 L 05/04/18 07:28 Weight - Most Recent: 188 lb KAT Results - Last 24 hrs: Microbiology 05/01/18 13:02 Gram Stain - Final Sputum - Expectorated Sputum Culture - Preliminary Enterobacter Cloacae Gram Positive Cocci 04/30/18 13:42 Aerobic Blood Culture - Preliminary Blood - Venous NO GROWTH AFTER 3 DAYS Anaerobic Blood Culture - Preliminary NO GROWTH AFTER 3 DAYS 04/30/18 13:47 Aerobic Blood Culture - Preliminary Blood - Venous - Lab Draw NO GROWTH AFTER 3 DAYS Anaerobic Blood Culture - Preliminary NO GROWTH AFTER 3 DAYS Med Orders - Current: Current Medications Acetaminophen (Tylenol) 650 mg PO Q4H PRN PRN Reason: Pain (Mild 1-3)/fever Albuterol/Ipratropium (Duoneb 3.0-0.5 Mg/3 Ml) 3 ml NEB QIDRT [facility] Last Admin: 05/04/18 07:28 Dose: 3 ml Fluticasone Propionate (Flonase) 0 gm LETICIA DAILY [facility] Last Admin: 05/03/18 10:04 Dose: 2 spray Levofloxacin (Levaquin) 750 mg PO Q24H [facility] Mometasone Furoate/Formoterol Fumar (Dulera 200-5 Mcg) 2 puff IH BID [facility] Last Admin: 05/03/18 20:23 Dose: 2 puff Prednisone (Prednisone) 60 mg PO DAILY [facility] Last Admin: 05/03/18 10:04 Dose: 60 mg Sodium Chloride (Saline Flush) 10 ml FLUSH ASDIRECTED PRN PRN Reason: Keep Vein Open Last Admin: 05/03/18 15:37 Dose: 10 ml Warfarin Sodium (Coumadin Sliding Scale) 1 each PO ASDIRECTED [facility] Warfarin Sodium (Coumadin) 5 mg PO 1600 [facility] Stop: 05/04/18 16:01 Last Admin: 05/03/18 16:11 Dose: 5 mg Discontinued Medications Levofloxacin/Dextrose 750 mg/ (Premix) 150 mls @ 100 mls/hr IV Q24H [facility] Last Admin: 05/03/18 14:06 Dose: 100 mls/hr Sodium Chloride (Normal Saline) 1,000 mls @ 125 mls/hr IV ASDIRECTED [facility] Last Admin: 05/01/18 02:11 Dose: 125 mls/hr Iopamidol (Isovue-370 (76%)) 100 ml IV . DIRECTED ONE Stop: 05/01/18 09:03 Iopamidol (Isovue-370 (76%)) 75 ml IV ASDIRECTED ONE Stop: 05/01/18 11:58 Last Admin: 05/01/18 12:16 Dose: 75 ml Methylprednisolone Sodium Succinate (Solu-Medrol) 125 mg IVPUSH Q8H [facility] Last Admin: 05/02/18 09:10 Dose: 125 mg Warfarin Sodium (Coumadin) 2.5 mg PO 1600 [facility] Stop: 05/02/18 16:01 Last Admin: 05/02/18 17:07 Dose: 2.5 mg
[2018-05-04] MEDS ORDERED: Levofloxacin 750 MG Tab PO SCH (09:00)
[2018-05-04] MEDS: Fluticasone Propionate Nasal Spray 16 GM Bottle NAS SCH (10:03)
[2018-05-04] MEDS: Formoterol/Mometasone 200-5 MCG 8.8 GM Inhaler IH SCH (10:03)
[2018-05-04] MEDS: predniSONE 20 MG Tab PO SCH (10:04)
[2018-05-04 11:26] VITALS: BP 138/86
== END 2018-05-04 10:30 | disposition home or self-care (01) | DRG 194 ==
LOC: FB.MS 13:21
PROVIDERS: ADMIT Family Medicine; ATTEND Family Medicine
DX: J18.1 Lobar pneumonia, unspecified organism (principal); J44.0 Chronic obstructive pulmonary disease with (acute) lower respiratory infection; J44.1 Chronic obstructive pulmonary disease with (acute) exacerbation; E87.1 Hypo-osmolality and hyponatremia; R09.02 Hypoxemia; F17.210 Nicotine dependence, cigarettes, uncomplicated; Z99.81 Dependence on supplemental oxygen; Z86.718 Personal history of other venous thrombosis and embolism; Z51.5 Encounter for palliative care; D69.6 Thrombocytopenia, unspecified; Z79.01 Long term (current) use of anticoagulants
CPT/HCPCS: 36415; 71260; 80048; 80053; 84484; 85025; 85027; 85610; 87040; 87070; 87077; 87186; 87205; 87804; 87804-59; 93005; 94150; 94640; A9270-GY; J1956; J2930; J7030; J7620-GY; Q9967

== ENCOUNTER 2020-10-13 18:30 | Emergency (ER) | payer MEDICARE, MEDICAID ==
[2020-10-13 19:01] VITALS: BP 135/85; PULSE 94
--- NOTE | 2020-10-13 19:13 | EDM.PDOC ---
ED HPI GENERAL MEDICAL PROBLEM - General Chief Complaint: Abdominal Pain Stated Complaint: STOMACH PAIN Time Seen by Provider: 10/13/20 18:35 Source of Information: Reports: Patient, Family History Limitations: Reports: No Limitations - History of Present Illness INITIAL COMMENTS - FREE TEXT/NARRATIVE: Patient presented to the ED because of LLQ pain which started 30 minutes ago. He was seen at the [facility] ED in [place] due to hemoptysis. Labs and chest CT were normal. On his way home he developed LLQ pain,3/10, cramping. He said he had i watery stool just an hour ago,denies any nausea or vomiting. Bilateral Lower Abdomen Pain Score (Numeric/FACES): 2 - Related Data Allergies Allergy/AdvReac Type Severity Reaction Status Date / Time No Known Allergies Allergy Verified 04/30/18 15:42 Home Meds: Home Meds Albuterol/Ipratropium [Combivent] 1 puff PO QID 05/11/16 [History] Warfarin [Coumadin] 5 mg PO SUTUWETHFRSA 05/11/16 [History] Warfarin [Coumadin] 7.5 mg PO MO 05/11/16 [History] Fluticasone Propion/Salmeterol [Advair 250-50 Diskus] 1 each IH BID 05/15/16 [Hi story] Aspirin 81 mg PO DAILY 05/01/18 [History] levoFLOXacin [Levaquin] 750 mg PO Q24H #5 tablet 05/04/18 [Rx] predniSONE [Prednisone] See Taper PO DAILY #42 tablet 05/04/18 [Rx] Past Medical History Cardiovascular History: Reports: Angina, Blood Clots/VTE/DVT Respiratory History: Reports: COPD Musculoskeletal History: Reports: Other (See Below) Other Musculoskeletal History: fx left ankle and laceration to right leg in past 20 years - Past Surgical History GI Surgical History: Reports: Hernia, Inguinal Social & Family History - Family History Family Medical History: No Pertinent Family History Cardiac: Reports: [place] Respiratory: Reports: PE, Other (See Below) Other Respiratory Family Hisory: emph Oncologic: Reports: Other (See Below) Other Oncologic Family History: older sister passed from [place] unsure of type - Tobacco Use Tobacco Use Status *Q: Current Some Day Tobacco User Years of Tobacco use: 40 Packs/Tins Daily: 0.5 - Caffeine Use Caffeine Use: Reports: Coffee - Recreational Drug Use Recreational Drug Use: No ED ROS GENERAL - Review of Systems Review Of Systems: See Below Constitutional: Reports: No Symptoms HEENT: Reports: No Symptoms Respiratory: Reports: No Symptoms Cardiovascular: Reports: No Symptoms Endocrine: Reports: No Symptoms GI/Abdominal: Reports: Abdominal Pain, Diarrhea : Reports: No Symptoms Musculoskeletal: Reports: No Symptoms Skin: Reports: No Symptoms Neurological: Reports: No Symptoms Psychiatric: Reports: No Symptoms ED EXAM, GI/ABD - Physical Exam Exam: See Below Exam Limited By: No Limitations General Appearance: Alert, No Apparent Distress Ears: Normal External Exam, Normal Canal Nose: Normal Inspection, Normal Mucosa, No Blood Throat/Mouth: Normal Inspection, Normal Lips, Normal Teeth Head: Atraumatic, Normocephalic Neck: Normal Inspection, Supple, Non-Tender, Full Range of Motion Respiratory/Chest: No Respiratory Distress, Lungs Clear, Normal Breath Sounds, No Accessory Muscle Use, Chest Non-Tender Cardiovascular: Normal Peripheral Pulses, Regular Rate, Rhythm, No Edema, No Gallop GI/Abdominal Exam: Normal Bowel Sounds, Soft, Non-Tender, No Organomegaly, No Distention, No Abnormal Bruit Back Exam: Normal Inspection, Full Range of Motion Course - Vital Signs Text/Narrative:: Lab and Chest CT result from [facility] was reviewed and discussed with patient and his family Last Recorded V/S: Last Vital Signs Temp 36.1 C 10/13/20 18:30 Pulse 94 10/13/20 18:30 Resp 20 10/13/20 18:30 BP 135/85 10/13/20 18:30 Pulse Ox 92 L 10/13/20 18:30 Departure - Departure Time of Disposition: 17:30 Disposition: Home, Self-Care 01 Condition: Good Clinical Impression: Gastroenteritis - Discharge Information Instructions: Viral Gastroenteritis, Adult, [id number] Forms: ED Department Discharge Additional Instructions: Please read discharge instructions on viral gastroenteritis Frequent hand washing and drink at least 2-3 liters of water daily Imodium 2 tablets every 6 hours as needed for your loose tools Take your antibiotic and steroids as prescribed Follow up as needed Sepsis Event Note (ED) - Evaluation Sepsis Screening Result: No Definite Risk - Focused Exam Vital Signs: Vital Signs Temp Pulse Resp BP Pulse Ox 10/13/20 18:30 36.1 C 94 20 135/85 92 L
== END 2020-10-13 19:26 | disposition home or self-care (01) ==
LOC: FB.ED 18:30
DX: K52.9 Noninfective gastroenteritis and colitis, unspecified (principal); J44.9 Chronic obstructive pulmonary disease, unspecified; Z79.82 Long term (current) use of aspirin; Z79.01 Long term (current) use of anticoagulants; Z72.0 Tobacco use
CPT/HCPCS: 99283